=== PATIENT | male | born 1975 | race Caucasian/White ===

== ENCOUNTER 2021-10-08 17:39 | Inpatient (IN) | payer MEDICARE, MEDICAID ==
[2021-10-08] MEDS ORDERED: ACETAMINOPHEN TAB 325 MG TAB PO PRN (21:52)
[2021-10-08] MEDS ORDERED: MAGNESIUM HYDROXIDE 2,400 MG/10 ML CUP PO PRN (21:52)
[2021-10-08] MEDS ORDERED: MAG HYDROX/AL HYDROX/SIMETH 30 ML CUP PO PRN (21:52)
[2021-10-08] MEDS ORDERED: OLANZapine 5 MG TAB PO PRN (21:58)
[2021-10-08] MEDS ORDERED: OLANZapine 10 MG VIAL IM PRN (21:58)
[2021-10-08] MEDS ORDERED: hydrOXYzine HCL 50 MG/ML 1 ML VIAL IM PRN (21:59)
[2021-10-08] MEDS ORDERED: hydrOXYzine pamoate 25 MG CAP PO PRN (21:59)
--- NOTE | 2021-10-09 07:13 | P.MDCNMH ---
History of Present Illness H&P Date: 10/09/21 Chief Complaint: Suicide ideation Radhames is a 46-year-old male he was transferred from [facility]. Patient was taken to the hospital and petitioned for certification by a relative. There was concern that patient was talking about purchasing a gun to hurt himself. Patient does have a medical history of schizophrenia and he reports that he has not been taking his medications for the last week. Per hospital report he was having auditory hallucination with negative thoughts. There is attempts he made to purchase a gun at a local sports store however he was refused this purchase by the employee there. Patient currently denies any auditory or visual hallucinations. Patient denies any previous suicide attempt history patient's home medication includes Prolixin Review of Systems All systems: negative Past Medical History Past Medical History: Diabetes Mellitus, Hypertension Additional Past Medical History / Comment(s): Hx of covid in 2020 History of Any Multi-Drug Resistant Organisms: None Reported Past Surgical History: No Surgical Hx Reported Smoking Status: Never smoker Medications and Allergies Home Medications Medication Instructions Recorded Confirmed Type Atenolol/Chlorthalidone 1 each PO DAILY 10/08/21 10/08/21 History [Atenolol/Chlorthalidone 50-25] Benztropine Mesylate [Cogentin] 1 mg PO DAILY 10/08/21 10/08/21 History QUEtiapine FUMARATE [SEROquel] 200 mg PO BID 10/08/21 10/08/21 History clonazePAM 1 mg PO BID 10/08/21 10/08/21 History metFORMIN HCL [Glucophage] 1 tab PO BID 10/08/21 10/08/21 History Allergies Allergy/AdvReac Type Severity Reaction Status Date / Time aripiprazole [From Abilify] Allergy Unknown Verified 10/08/21 21:45 haloperidol [From Haldol] Allergy Unknown Verified 10/08/21 21:45 risperidone [From Risperdal] Allergy Unknown Verified 10/08/21 21:45 ziprasidone [From Geodon] Allergy Unknown Verified 10/08/21 21:45 quetiapine [From Seroquel] AdvReac Unknown Verified 10/08/21 21:45 Physical Exam Osteopathic Statement: *. No significant issues noted on an osteopathic structural exam other than those noted in the History and Physical/Consult. Vitals: Vital Signs Temp Pulse Resp BP 10/09/21 04:43 97.5 F L 79 16 111/79 Intake and Output 10/08/21 10/09/21 10/09/21 22:59 06:59 14:59 Other: Weight 84.09 kg 77.2 kg - Constitutional General appearance: cooperative, no acute distress - EENT Eyes: EOMI, PERRLA Ears: bilateral: normal - Respiratory Respiratory: bilateral: CTA - Cardiovascular Rhythm: regular Heart sounds: normal: S1, S2 - Gastrointestinal General gastrointestinal: normal bowel sounds, soft - Integumentary Integumentary: normal - Neurologic Neurologic: CNII-XII intact - Psychiatric Psychiatric: A&O x's 3 Cranial Nerve Examination - Cranial Nerves Cranial Nerve I- Olfactory: Intact Cranial Nerve II- Optic: Intact Cranial Nerve III- Oculomotor: Intact Cranial Nerve IV- Trochlear: Intact Cranial Nerve V- Trigeminal: Intact Cranial Nerve - Abducens: Intact Cranial Nerve VII- Facial: Intact Cranial Nerve VIII- Auditory: Intact Cranial Nerve IX- Glossopharyngeal: Intact Cranial Nerve X- Vagus: Intact Cranial Nerve XI- Accessory: Intact Cranial Nerve XII- Hypoglossal: Intact Assessment and Plan Assessment: Hypertension -Patient's home medications include atenolol/chlorthalidone Diabetes mellitus type 2 -Home medications include metformin. We will check hemoglobin A1c Schizophrenia Suicide ideations -Management per inpatient psychiatric team. Currently on olanzapine, Cogentin, Seroquel (1) Hypertension Current Visit: Yes Status: Acute Code(s): I10 - ESSENTIAL (PRIMARY) HYPERTENSION SNOMED Code(s): 49608592
[2021-10-09 07:48] LABS: African American GFR (CKD) >90 (>60 ml/min/1.73 sqM); Anion Gap 10 mmol/L; Blood Urea Nitrogen 12 mg/dL (9-20); Calcium 9.3 mg/dL (8.4-10.2); Carbon Dioxide 24 mmol/L (22-30); Chloride 103 mmol/L (98-107); Glucose 200 mg/dL (74-99); Non-African American GFR(CKD) >90 (>60 ml/min/1.73 sqM); Sodium 137 mmol/L (137-145)
[2021-10-09] MEDS: QUEtiapine 200 MG TAB PO SCH ×2 (08:37→08:40)
[2021-10-09] MEDS: metFORMIN 850 MG TAB PO SCH ×2 (08:37→20:15)
[2021-10-09] MEDS: CHLORTHALIDONE 25 MG TAB PO SCH (08:37)
[2021-10-09 08:38] LABS: Glucose,Whole Blood 199 mg/dL (70-110)
[2021-10-09] MEDS: atenoloL 50 MG TAB PO SCH (08:42)
[2021-10-09] MEDS ORDERED: BENZTROPINE MESYLATE 0.5 MG TAB PO SCH (09:00)
[2021-10-09] MEDS ORDERED: atenoloL 50 MG TAB PO SCH (09:00)
[2021-10-09] MEDS ORDERED: CHLORTHALIDONE 25 MG TAB PO SCH (09:00)
[2021-10-09] MEDS: INSULIN ASPART (NovoLOG) 100 UNIT/ML VIAL SQ SCH ×4 (09:28→20:14)
[2021-10-09 12:40] LABS: Glucose,Whole Blood 175 mg/dL (70-110)
[2021-10-09 14:10] VITALS: BMI 24.4
[2021-10-09] MEDS ORDERED: BENZTROPINE MESYLATE 1 MG TAB PO PRN (14:11)
--- NOTE | 2021-10-09 15:02 | P.HP ---
Psychiatric H&P - . H&P Date: 10/09/21 History & Physical: Allergies Allergy/AdvReac Type Severity Reaction Status Date / Time aripiprazole [From Abilify] Allergy Unknown Verified 10/08/21 21:45 haloperidol [From Haldol] Allergy Unknown Verified 10/08/21 21:45 risperidone [From Risperdal] Allergy Unknown Verified 10/08/21 21:45 ziprasidone [From Geodon] Allergy Unknown Verified 10/08/21 21:45 quetiapine [From Seroquel] AdvReac Unknown Verified 10/08/21 21:45 Vital Signs Temp 97.5 F L 10/09/21 04:43 Pulse 79 10/09/21 04:43 Resp 16 10/09/21 04:43 BP 111/79 10/09/21 04:43 Pulse Ox FiO2 Intake & Output 10/08/21 10/09/21 10/09/21 18:59 06:59 18:59 Weight 77.2 kg 77.2 kg Laboratory Last Values Sodium 137 mmol/L (137-145) 10/09/21 07:06 Potassium 4.0 mmol/L (3.5-5.1) 10/09/21 07:06 Chloride 103 mmol/L (98-107) 10/09/21 07:06 Carbon Dioxide 24 mmol/L (22-30) 10/09/21 07:06 Anion Gap 10 mmol/L 10/09/21 07:06 BUN 12 mg/dL (9-20) 10/09/21 07:06 Creatinine 0.73 mg/dL (0.66-1.25) 10/09/21 07:06 Est GFR (CKD-EPI)AfAm >90 (>60 ml/min/1.73 sqM) 10/09/21 07:06 Est GFR (CKD-EPI)NonAf >90 (>60 ml/min/1.73 sqM) 10/09/21 07:06 Glucose 200 mg/dL (74-99) H 10/09/21 07:06 POC Glucose (mg/dL) 175 mg/dL (70-110) H 10/09/21 12:38 POC Glu Pharmacy Intake Technician ID Yun Lantigua 10/09/21 12:[address] Glu mg/dL 137 10/09/21 07:06 Hemoglobin A1c 6.4 % (0.0-6.0) H 10/09/21 07:06 Calcium 9.3 mg/dL (8.4-10.2) 10/09/21 07:06 10/09/21 14:32 IDENTIFYING DATA: Patient is a 46-year-old male with a history of schizophrenia who currently lives in a condo with his cousin has no kids and collects Social Security. HPI: Patient presented to the hospital yesterday as a transfer from [facility]. Patient was brought in on a petition and certificate. The petition and stated that patient has been hearing voices not take medications and was talking about buying a gun and having suicidal thoughts. Patient was admitted involuntarily mental health unit. He was agreeable to speak to typewriter assembler. He was attending to cooperate during the interview and was directable. He states that he has been feeling worse for the past 4 or 5 days. Before coming into the hospital he states that he stopped taking his medications because he "ran out". He claims that he is feeling mildly depressed and somewhat anxious. He states that "everything on the petition is a lie" and states that his cousin lied to get him into the hospital and "before I knew it was transferred to [place]". He states that he feels deceived by everyone and claims that "I was stabbed in the back". He denies trying to buy a gun. He claims that he does have history of schizophrenia and is agreeable to get started back on his medications. He states that he was on Prolixin before and was asking for it from the ER however did not receive it. He claims of the Prolixin has not been helping him much more to try another medication. He states that his sleep has been poor and appetite is fair. Patient denies any suicidal or homicidal ideations intent or plan. At this time patient denies any visual hallucinations. He states that he does have auditory hallucinations however does not know what they are saying. Patient denies any flight of ideas racing thoughts and increased in goal directed behavior. Patient admits to using no recreational drugs or cigarettes. PAST PSYCHIATRIC HISTORY: Patient states that he has a history of schizophrenia. He claims that he was previously on Cogentin, Seroquel, Klonopin and also Prolixin. He claims that he was last admitted to [facility] however does not remember when. [Patient denies any psychiatric outpatient follow-up.] [Patient denies any history of suicide attempts in the past.] PMH: As per medicine H&P ALLERGIES: as per EMR CHEMICAL DEPENDENCY HISTORY: as per HPI FAMILY PSYCHIATRIC/SUBSTANCE USE HISTORY: Claims that his uncle and cousin both committed suicide. SOCIAL HISTORY: Patient was born and raised in [place]. He states that he completed high school and also did some college. He claims that he's never been to senior living or halfway. He claims that he does not have any kids collects social security. [facility] his cousin. MENTAL STATUS EXAM: General Appearance: Patient appears to be overweight, unkempt, stated age is alert, [directable, and attempts to cooperate]. Patient appears to have [poor] hygiene and grooming. Behavior: Patient is seated without any agitated behavior. Attempts to cooperate. Speech: Patient's speech is [fluent and nonpressured.] Mood/Affect: Patient reports their mood is [depressed], affect is congruent and constricted. Suicidality/Homicidality: Patient denies having any homicidal ideation intent or plan. [Denies any suicidal ideations intent or plan] Perceptions: Patient denies any visual hallucinations and admits to auditory hallucinations. Though content/process: [There is no evidence of any delusional thought content and thought process is linear and goal-directed.] Memory and concentration: AOX3, grossly intact for the purposes of this session. Can spell "WORLD" backwards Judgment and insight: [poor] STRENGTHS/WEAKNESSES: strength is that patient is [resilient]. Weakness is that patient [has poor judgment and is impulsive] INTELLECT: [average] IMPRESSIONS: Schizoaffective disorder, depressive type PLAN: -Patient is admitted under [voluntary] status to MHU for stabilization of psychiatric symptoms and safety. Patient has signed [adult voluntary form and] [medication consent] and is placed in patient's chart. -Medications : Will start patient on Zyprexa 5 mg daily at bedtime for psychosis /mood stabilization/insomnia. Prozac 20 mg daily for mood. -vistaril PRN for agitation/aggression -Patient was informed of the risks, benefits and side effects of the medication and patient verbally consented to taking the medications. Patient signed med consent form and was placed in chart. -Internal Medicine consult to perform medical evaluation and physical. -NRT - not needed as patient does not smoke -SW on board for discharge planning. Encourage patient to participate in groups to work on coping skills. 10/09/21 14:58 10/09/21 15:02
[2021-10-09] MEDS: FLUoxetine HCL 20 MG CAP PO SCH (16:17)
[2021-10-09 17:36] LABS: Glucose,Whole Blood 165 mg/dL (70-110)
[2021-10-09 20:05] LABS: Glucose,Whole Blood 183 mg/dL (70-110)
[2021-10-09] MEDS: OLANZapine 5 MG TAB PO SCH (20:15)
[2021-10-10 07:44] LABS: Glucose,Whole Blood 174 mg/dL (70-110)
[2021-10-10] MEDS: INSULIN ASPART (NovoLOG) 100 UNIT/ML VIAL SQ SCH ×4 (08:32→21:59)
[2021-10-10] MEDS: CHLORTHALIDONE 25 MG TAB PO SCH (09:27)
[2021-10-10] MEDS: FLUoxetine HCL 20 MG CAP PO SCH (09:27)
[2021-10-10] MEDS: atenoloL 50 MG TAB PO SCH (09:27)
[2021-10-10] MEDS: metFORMIN 850 MG TAB PO SCH ×2 (09:30→21:59)
--- NOTE | 2021-10-10 09:51 | P.PN ---
Subjective Progress Note Date: 10/10/21 Principal diagnosis: Diagnosis Schizoaffective disorder, depressive type Patient states that he has a history of schizophrenia. He claims that he was previously on Cogentin, Seroquel, Klonopin and also Prolixin. He did not feel like talking much said that he slept okay last night but was sleeping when I came to talk to him at 10:00 in the morning. He says he has a place to stay and friends and a plan for the future and that he feels safe in here. MENTAL STATUS EXAM: General Appearance: Patient appears to be overweight, unkempt, stated age, he is drowsy at 10 in the morning, he got out of bed and came to the office but seems have poverty of ideas. He said he had no questions and did ask for me to increase evening medicines that he is still feeling pretty agitated and anxious. Patient appears to have poor hygiene and grooming. Behavior: Patient is seated without any agitated behavior. Attempts to cooperate. Speech: Patient's speech is soft and not very productive] Mood/Affect: Patient reports their mood is depressed, affect is sad and constricted. Suicidality/Homicidality: Patient denies having any homicidal or suicidal ideation intent or plan Perceptions: Patient denies any visual hallucinations but admits to auditory hallucinations. Though content/process: He just didn't say very much Judgment and insight: Vague IMPRESSIONS: Schizoaffective disorder, depressive type I believe he needs continued hospitalization due to ongoing psychosis low energy and drive depression and it will take some time for the medicine to give him relief Plan continue current medication. Objective - Vital Signs Vital signs: Vital Signs Temp 97.5 F L 10/09/21 04:43 Pulse 79 10/09/21 04:43 Resp 16 10/09/21 04:43 BP 111/79 10/09/21 04:43 Pulse Ox FiO2 Intake & Output 10/09/21 10/10/21 10/10/21 18:59 06:59 18:59 Weight 77.2 kg - Labs CBC & Chem 7: 10/09/21 07:06 Labs: Abnormal Lab Results - Last 24 Hours (Table) 10/09/21 10/09/21 10/09/21 Range/Units 07:06 12:38 17:35 POC Glucose (mg/dL) 175 H 165 H (70-110) mg/dL Hemoglobin A1c 6.4 H (0.0-6.0) % 10/09/21 10/10/21 Range/Units 20:03 07:42 POC Glucose (mg/dL) 183 H 174 H (70-110) mg/dL Hemoglobin A1c (0.0-6.0) %
[2021-10-10 12:52] LABS: Glucose,Whole Blood 134 mg/dL (70-110)
[2021-10-10 17:52] LABS: Glucose,Whole Blood 163 mg/dL (70-110)
[2021-10-10 20:09] LABS: Glucose,Whole Blood 154 mg/dL (70-110)
[2021-10-10] MEDS: OLANZapine 5 MG TAB PO SCH (21:59)
[2021-10-11] MEDS: INSULIN ASPART (NovoLOG) 100 UNIT/ML VIAL SQ SCH ×4 (07:55→20:01)
[2021-10-11 07:59] LABS: Glucose,Whole Blood 147 mg/dL (70-110)
[2021-10-11] MEDS: FLUoxetine HCL 20 MG CAP PO SCH (08:32)
[2021-10-11] MEDS: metFORMIN 850 MG TAB PO SCH ×2 (08:32→20:02)
[2021-10-11] MEDS: CHLORTHALIDONE 25 MG TAB PO SCH (08:32)
[2021-10-11] MEDS: atenoloL 50 MG TAB PO SCH (08:32)
--- NOTE | 2021-10-11 10:15 | P.PN ---
Subjective Progress Note Date: 10/11/21 Principal diagnosis: Diagnosis Schizoaffective disorder, depressive type Patient states that he has a history of schizophrenia. He claims that he was previously on Cogentin, Seroquel, Klonopin and also Prolixin. He seemed a little less sleepy than yesterday and willing to engage in conversation. He says he has a place to stay and friends and a plan for the future and that he feels safe in here. MENTAL STATUS EXAM: He was wearing a shirt from a local [employer] and when I asked him he said he is a member there and does go to both men's groups and the episcopalian. He was willing to discuss the difficulty of the interaction of tiburcio and illness and accepted a referral to a blog site that could help with these issues. General Appearance: Patient appears to be overweight, unkempt, he seemed to be his stated age, he is drowsy at 10 in the morning, he struggles with poverty of ideas but when pushed was able to come up with comments and ideas. he is still feeling pretty agitated and anxious. Patient appears to have improved hygiene and grooming. Behavior: Patient is seated without any agitated behavior. Attempts to cooperate. Speech: Patient's speech is soft and not very productive Mood/Affect: Patient reports their mood is depressed, affect is sad and constricted. Suicidality/Homicidality: Patient denies having any homicidal or suicidal ideation intent or plan Perceptions: Patient denies any visual hallucinations but admits to auditory hallucinations. Though content/process: He just didn't say very much Judgment and insight: Vague IMPRESSIONS: Schizoaffective disorder, depressive type I believe he needs continued hospitalization due to ongoing psychosis low energy and drive depression and it will take some time for the medicine to give him relief Increase Zyprexa to 10 Objective - Vital Signs Vital signs: Vital Signs Temp 97.4 F L 10/11/21 07:00 Pulse 71 10/11/21 07:00 Resp 14 10/11/21 07:00 BP 132/76 10/11/21 07:00 Pulse Ox FiO2 Intake & Output 10/10/21 10/11/21 10/11/21 18:59 06:59 18:59 Weight 75.7 kg - Labs CBC & Chem 7: 10/09/21 07:06 Labs: Abnormal Lab Results - Last 24 Hours (Table) 10/10/21 10/10/21 10/10/21 Range/Units 12:49 17:50 20:07 POC Glucose (mg/dL) 134 H 163 H 154 H (70-110) mg/dL 10/11/21 Range/Units 07:57 POC Glucose (mg/dL) 147 H (70-110) mg/dL
[2021-10-11 12:59] LABS: Glucose,Whole Blood 139 mg/dL (70-110)
[2021-10-11 17:34] LABS: Glucose,Whole Blood 134 mg/dL (70-110)
[2021-10-11 19:56] LABS: Glucose,Whole Blood 190 mg/dL (70-110)
[2021-10-11] MEDS ORDERED: OLANZapine 10 MG TAB PO SCH (21:00)
[2021-10-12 07:49] LABS: Glucose,Whole Blood 187 mg/dL (70-110)
[2021-10-12] MEDS: INSULIN ASPART (NovoLOG) 100 UNIT/ML VIAL SQ SCH ×4 (08:09→20:02)
[2021-10-12] MEDS: CHLORTHALIDONE 25 MG TAB PO SCH (08:10)
[2021-10-12] MEDS: FLUoxetine HCL 20 MG CAP PO SCH (08:10)
[2021-10-12] MEDS: metFORMIN 850 MG TAB PO SCH ×2 (08:10→20:04)
[2021-10-12] MEDS: atenoloL 50 MG TAB PO SCH (08:10)
[2021-10-12 08:12] VITALS: RESP 18
[2021-10-12 12:52] LABS: Glucose,Whole Blood 158 mg/dL (70-110)
--- NOTE | 2021-10-12 14:39 | P.PN ---
Progress Note - Text Progress Note Date: 10/12/21 Clinical Problems: Schizoaffective Disorder Depressed Type Interim history: I reviewed the medical record, interviewed the patient and discussed the treatment and treatment plan with the treatment team. He provided little information and demonstrated marked poverty of thought and content. He was unwilling to talk about the circumstances that led to this hospitalization particularly the thoughts of suicide. He acknowledged that he continues to experience auditory hallucinations but was unwilling to talk about content. He feels "occasionally" frightened and anxious. Compliant with prescribed psychotropic medications. He is posed no management problems had no episodes of behavioral dyscontrol. He spends most of his time alone in bed seldom interacting with staff or peers. He does not attend therapeutic groups or activities. Mental status exam: He presented as casually groomed middle-aged male who was pleasant on approach. He was unshaven. He made eye contact and appeared to attend to the interview. At times he was internally preoccupied. He had a flat facial expression. He showed psychomotor retardation but no abnormal involuntary movements. Her speech was not spontaneous and had decreased rate and rhythm. His affect was depressed and unreactive. He did not express suicidal ideation or wishes. He denied homicidal ideation. He did not express feelings of hopelessness, helplessness or worthlessness. He did not express ideas reference or paranoid ideation. His thinking was very concrete and associations at times were not coherent or goal directed. He described auditory hallucinations and at times appeared to be responding to internal stimuli. Assessment: He is seriously mentally ill and mentally improve from admission. Plan: Continue inpatient treatment. Safety precautions. Continue current psychotropic medications-Cogentin 1 mg twice a day and Prozac 20 mg daily. Increase Zyprexa to 15 mg at bedtime and titrated according to clinical response and tolerance. Encourage participation in therapeutic groups and activities. E valuate clinical status response to treatment daily basis.
[2021-10-12 17:25] LABS: Glucose,Whole Blood 168 mg/dL (70-110)
[2021-10-12 19:56] LABS: Glucose,Whole Blood 174 mg/dL (70-110)
[2021-10-12] MEDS: OLANZapine 5 MG TAB PO SCH (20:04)
[2021-10-13 07:55] LABS: Glucose,Whole Blood 165 mg/dL (70-110)
[2021-10-13] MEDS: atenoloL 50 MG TAB PO SCH (08:04)
[2021-10-13] MEDS: CHLORTHALIDONE 25 MG TAB PO SCH (08:04)
[2021-10-13] MEDS: FLUoxetine HCL 20 MG CAP PO SCH (08:04)
[2021-10-13] MEDS: metFORMIN 850 MG TAB PO SCH ×2 (08:04→20:07)
[2021-10-13] MEDS: INSULIN ASPART (NovoLOG) 100 UNIT/ML VIAL SQ SCH ×4 (08:05→20:05)
--- NOTE | 2021-10-13 12:25 | P.PN ---
Progress Note - Text Progress Note Date: 10/13/21 Clinical Problems: Schizoaffective Disorder Depressed Type Interim history: I reviewed the medical record, interviewed the patient and discussed the treatment and treatment plan with the treatment team. He remains isolative but is posed no management problems and had no episodes of behavioral dyscontrol. He was pleasant and controlled during our interview. He described experiencing continued auditory hallucinations. He is apprehensive about discussing the nature of this experience other than mentioned that they are derogatory and blasphemous. He denied that the "voices" interfered with disability to function or are distracting or commanding. He remains unable to describe the circumstances that led to this hospitalization. He talked about a woman from [facility] coming to his home on the day of admission. He remains compliant with prescribed psychotropic medications. He is posed no management problems had no episodes of behavioral dyscontrol. He spends most of his time alone in bed seldom interacting with staff or peers. He does not attend therapeutic groups or activities. Mental status exam: He presented as casually groomed middle-aged male who was pleasant on approach. He was unshaven. He made eye contact and appeared to attend to the interview. At times he was internally preoccupied. He had a flat facial expression. He showed psychomotor retardation but no abnormal involuntary movements. Her speech was not spontaneous and had dec reased rate and rhythm. His affect was depressed and unreactive. He did not express suicidal ideation or wishes. He denied homicidal ideation. He did not express feelings of hopelessness, helplessness or worthlessness. He did not express ideas reference or paranoid ideation. His thinking was very concrete and associations at times were not coherent or goal directed. He described auditory hallucinations and at times appeared to be responding to internal stimuli. Assessment: He is seriously mentally ill and moderately improved from admission. Plan: Continue inpatient treatment. Safety precautions. Continue current psychotropic medications-Cogentin 1 mg twice a day and Prozac 20 mg daily and Zyprexa to 15 mg at bedtime. hoist worker to clarify the level of services he is receiving from [facility]. Encourage participation in therapeutic groups and activities. Evaluate clinical status response to treatment daily basis. Plan for discharge on 10/14/2021.
[2021-10-13 12:51] LABS: Glucose,Whole Blood 139 mg/dL (70-110)
[2021-10-13 17:50] LABS: Glucose,Whole Blood 137 mg/dL (70-110)
[2021-10-13 20:05] LABS: Glucose,Whole Blood 195 mg/dL (70-110)
[2021-10-13] MEDS: OLANZapine 5 MG TAB PO SCH (20:07)
[2021-10-14 06:43] VITALS: BP 150/107; PULSE 107; TEMP 97.1
[2021-10-14 07:53] LABS: Glucose,Whole Blood 176 mg/dL (70-110)
[2021-10-14] MEDS: INSULIN ASPART (NovoLOG) 100 UNIT/ML VIAL SQ SCH (08:14)
[2021-10-14] MEDS: atenoloL 50 MG TAB PO SCH (08:18)
[2021-10-14] MEDS: CHLORTHALIDONE 25 MG TAB PO SCH (08:19)
[2021-10-14] MEDS: metFORMIN 850 MG TAB PO SCH (08:19)
[2021-10-14] MEDS: FLUoxetine HCL 20 MG CAP PO SCH (08:19)
[2021-10-14] MEDS ORDERED: LORazepam 1 MG TAB PO PRN (09:50)
[2021-10-14 12:46] LABS: Glucose,Whole Blood 162 mg/dL (70-110)
--- NOTE | 2021-10-14 14:29 | P.DS ---
Providers Date of admission: 10/09/21 04:47 Attending physician: Elias Carvalho MD Consults: 10/08/21 21:52 Consult Physician Routine Consulting Provider: Demetrio Armstrong Consult Reason/Comments: history and physical/medical management Do you want consulting provider notified?: Yes Primary care physician: Holden Graves - Discharge Diagnosis(es) (1) Schizoaffective disorder Current Visit: Yes Status: Chronic Priority: High (2) Suicidal ideation Current Visit: Yes Status: Acute Priority: Low (3) Poor compliance with medication Current Visit: Yes Status: Acute Priority: High Hospital Course: HISTORY: The patient is a 46-year-old male who has a history of a schizophrenia. He presented to the psychiatric unit involuntarily on transfer from [facility]. According to the petition he was hearing voices, not taking his medications and talking about buying a gun and having suicidal thoughts. He denied the allegations in the petition alleging that his cousin misrepresented presented a situation. He felt that he was "disease by everyone". He alleged that he had not been taking his medication because he "ran out." HOSPITAL COURSE: We admitted him to the psychiatric unit under care of Dr. Kiran. He agreed to a voluntary admission. We provided a comprehensive biopsychosocial assessment. The insurance healthcare consultant small engine mechanic completed initial physical exam and only diagnosed a history of hypertension and type 2 diabetes. The insurance healthcare consultant recommended to continue atenolol 50 mg daily, Hygroton 25 mg daily and metformin and her fish milligrams twice a day. We treated his psychotic disorder with olanzapine titrating the dose to 20 mg daily. He reported minimal benefit from continued "auditory hallucinations" despite receiving increasing doses of olanzapine. He remained isolated during which hospitalizations seldom interacting with staff or peers. He intermittently attended therapeutic groups and activities. He posed no management problem and had no episodes of behavioral dyscontrol. MENTAL STATUS ON DISCHARGE: At time of discharge she presented as a casually groomed 46-year-old male who was pleasant on approach. He made eye contact and attended to the interview. He had no distinguishing features or prominent physical abnormalities. He had a flat facial expression. He was alert and oriented to person, place and time. He showed psychomotor retardation but no abnormal involuntary movements. His speech was spontaneous with decreased rate, rhythm and volume. His affect was flat. He denied suicidal ideation and wishes. He denied homicidal ideation. He denied feeling hopeless, helpless or worthless. He did not express ideas reference, paranoid ideation or delusions. His thinking was concrete but his associations were goal directed. He complained of auditory hallucination but did not appear to be responding to internal stimuli. DISPOSITION: Her return to his prior address. He has a follow-up appointment scheduled with michael mcarthur on 10/20/2021. His discharge medications are listed below. Patient Condition at Discharge: Stable Plan - Discharge Summary Discharge Rx Participant: No New Discharge Prescriptions: New OLANZapine [ZyPREXA] 20 mg PO HS 30 Days tab Benztropine Mesylate [Cogentin] 1 mg PO BID PRN 30 Days tab PRN Reason: eps prophylaxis Chlorthalidone [Hygroton] 25 mg PO DAILY tab FLUoxetine HCL [PROzac] 20 mg PO DAILY 30 Days cap atenoloL [Tenormin] 50 mg PO DAILY 30 Days tab Continue metFORMIN HCL [Glucophage] 1 tab PO BID Discontinued Atenolol/Chlorthalidone [Atenolol/Chlorthalidone 50-25] 1 each PO DAILY clonazePAM 1 mg PO BID QUEtiapine FUMARATE [SEROquel] 200 mg PO BID Benztropine Mesylate [Cogentin] 1 mg PO DAILY Discharge Medication List metFORMIN HCL [Glucophage] 1 tab PO BID 10/08/21 [History] Benztropine Mesylate [Cogentin] 1 mg PO BID PRN 30 Days tab 10/14/21 [Rx] Chlorthalidone [Hygroton] 25 mg PO DAILY tab 10/14/21 [Rx] FLUoxetine HCL [PROzac] 20 mg PO DAILY 30 Days cap 10/14/21 [Rx] OLANZapine [ZyPREXA] 20 mg PO HS 30 Days tab 10/14/21 [Rx] atenoloL [Tenormin] 50 mg PO DAILY 30 Days tab 10/14/21 [Rx] Follow up Appointment(s)/Referral(s): Charissa Kuhn [Other] - 10/20/21 2:00 pm [facility] [Other] - 1 Week Patient Instructions/Handouts: Schizoaffective Disorder (DC) Discharge Disposition: HOME SELF-CARE
[2021-10-14] MEDS ORDERED: OLANZapine 10 MG TAB PO SCH (21:00)
== END 2021-10-14 13:56 | disposition home or self-care (01) | DRG 885 ==
LOC: 3MHU 10-09 04:47
PROVIDERS: ADMIT Psychiatry & Neurology Psychiatry; ATTEND Psychiatry & Neurology Psychiatry
DX: F25.1 Schizoaffective disorder, depressive type (principal); R45.851 Suicidal ideations; E11.9 Type 2 diabetes mellitus without complications; I10 Essential (primary) hypertension; Z91.14 Patient's other noncompliance with medication regimen; Z86.16 Personal history of COVID-19; Z28.21 Immunization not carried out because of patient refusal; Z79.84 Long term (current) use of oral hypoglycemic drugs; Z79.899 Other long term (current) drug therapy; Z88.8 Allergy status to other drugs, medicaments and biological substances
CPT/HCPCS: 80048; 83036